=== PATIENT | female | born 2000 | race Caucasian/White ===

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

== ENCOUNTER 2020-02-21 19:49 | Emergency (ER) | payer BC, OTHER ==
--- NOTE | 2020-02-21 20:04 | EDM.PDOC ---
ED HPI GENERAL MEDICAL PROBLEM - General Chief Complaint: Skin Complaint Stated Complaint: rash Time Seen by Provider: 02/21/20 20:03 - History of Present Illness INITIAL COMMENTS - FREE TEXT/NARRATIVE: 19-year-old female presents the emergency room with a rash. The patient's been treated with Chlortrimazole and did a full course of this and full 4-week course of Diflucan without much improvement. This originally started about 3 months ago she is not sure what contact she may have had to get exposed to this. But is just not getting any better. She has had some itching in the areas but no other significant problems and she is concerned about the cosmetic effects of these well. Patient has not had any systemic symptoms no breathing difficulty shortness of breath no gastrointestinal problems no significant pain or discomfort she gets some itching at the lesions. - Related Data Allergies Allergy/AdvReac Type Severity Reaction Status Date / Time aspirin Allergy Rash Verified 09/06/17 18:33 Home Meds: Home Meds Control. 09/06/17 [History] Famotidine 20 mg PO Q12H #60 tablet 09/06/17 [Rx] Sucralfate [Carafate] 1 gm PO QIDACANDBED #30 tablet 09/06/17 [Rx] Terbinafine HCl [Terbinafine] 250 mg PO Q24H #30 tablet 02/21/20 [Rx] Past Medical History - Past Health History Medical/Surgical History: Denies Medical/Surgical History ED ROS GENERAL - Review of Systems Review Of Systems: See Below Constitutional: Reports: No Symptoms HEENT: Reports: No Symptoms Respiratory: Reports: No Symptoms Cardiovascular: Reports: No Symptoms Endocrine: Reports: No Symptoms GI/Abdominal: Reports: No Symptoms : Reports: No Symptoms Musculoskeletal: Reports: No Symptoms Skin: Reports: No Symptoms Neurological: Reports: No Symptoms ED EXAM, SKIN/RASH Exam: See Below Exam Limited By: No Limitations General Appearance: Alert, No Apparent Distress Head: Atraumatic, Normocephalic Neck: Normal Inspection, Supple, Non-Tender, Full Range of Motion Respiratory/Chest: No Respiratory Distress, Lungs Clear, Normal Breath Sounds Cardiovascular: Regular Rate, Rhythm, No Edema, No Murmur GI/Abdominal: Normal Bowel Sounds, Soft, Non-Tender (Female) Exam: Normal External Exam, Normal Speculum Exam, Normal Bimanual Exam Rectal (Female) Exam: Normal Exam, Normal Rectal Tone Back Exam: Normal Inspection, Full Range of Motion Extremities: Normal Inspection, Normal Range of Motion, Non-Tender Neurological: Alert, Oriented, Normal Cognition, Normal Gait Psychiatric: Normal Mood, Tearful Skin: Other (Multiple classic ringworm type lesions with clearing centers and scaly rings.) Course - Vital Signs Last Recorded V/S: Last Vital Signs Temp 36.4 C 02/21/20 19:57 Pulse 107 H 02/21/20 19:57 Resp 16 02/21/20 19:57 BP 149/85 H 02/21/20 19:57 Pulse Ox 100 02/21/20 19:57 - Re-Assessments/Exams Free Text/Narrative Re-Assessment/Exam: 02/21/20 20:35 Patient is failed clotrimazole and Diflucan. We will trial her on terbinafine 250 mg daily for 4 weeks in the meantime she should seek expert consultation with dermatology. 02/21/20 21:04 The treatment she has had thus far should have been fairly beneficial at least led to some improvement and has not which makes me wonder about the true etiology of this. I have strongly recommended with the patient that let start this new treatment however I want her to seek immediate dermatology evaluation it may take a month or so to get in to be seen by 1. Departure - Departure Time of Disposition: 20:42 Disposition: Home, Self-Care 01 Clinical Impression: Ringworm of body - Discharge Information Prescriptions: Terbinafine HCl [Terbinafine] 250 mg PO Q24H #30 tablet Instructions: Body Ringworm Referrals: PCP,None [Primary Care Provider] - Forms: ED Department Discharge Additional Instructions: Return to the emergency room with any questions problems or worsening symptoms. He was started on terbinafine 250 mg a day take 1 daily as directed for 4 weeks. In the meantime he may use 1% hydrocortisone cream over the lesions himself. It would also be beneficial for you to try and get in with a tassel making machine operator during this time. Sepsis Event Note - Evaluation Sepsis Screening Result: No Definite Risk - Focused Exam Vital Signs: Vital Signs Temp Pulse Resp BP Pulse Ox 02/21/20 19:57 36.4 C 107 H 16 149/85 H 100 Date Exam was Performed: 02/21/20 Time Exam was Performed: 20:54
== END 2020-02-21 21:04 | disposition home or self-care (01) ==
LOC: JD.ED 19:49
DX: B35.4 Tinea corporis (principal); Z88.6 Allergy status to analgesic agent; Z79.899 Other long term (current) drug therapy
CPT/HCPCS: 99282

== ENCOUNTER 2022-02-03 04:31 | Inpatient (IN) | payer OTHER ==
[~2022-02-03 04:31] MED LIST: Bupivacaine 0.25% 10 ML SDV ONE; Phenylephrine/Normal Saline 100 MCG/ML 10 ML Syringe ONE; ePHEDrine 50 MG/ML SDV ONE
[2022-02-03] MEDS ORDERED: Lidocaine 1% 50 ML MDV INJECT ONE (04:54)
[2022-02-03] MEDS ORDERED: Calcium Carbonate 500 MG Tab.Chew PO PRN (04:54)
[2022-02-03] MEDS ORDERED: Ondansetron 4 MG/2 ML SDV IVPUSH PRN (04:54)
[2022-02-03] MEDS ORDERED: Nalbuphine HCl 10 MG/ 1ML Amp IVPUSH PRN (04:54)
[2022-02-03] MEDS ORDERED: Sodium Chloride 0.9% 10 ML Syringe FLUSH PRN (04:54)
[2022-02-03] MEDS ORDERED: Oxytocin/Lactated Ringers 10 UNIT/1,000 ML BAG IV SCH (05:00)
[2022-02-03] MEDS: Lactated Ringers 1,000 ML IV SCH ×5 (05:35→11:14)
[2022-02-03] MEDS ORDERED: Bupivacaine/fentaNYL/NS 100 ML Bag EPIDUR PRN (05:59)
[2022-02-03] MEDS ORDERED: diphenhydrAMINE 50 MG/ML SDV IVPUSH PRN (05:59)
[2022-02-03] MEDS ORDERED: fentaNYL 100 MCG/2 ML SDV EPIDUR PRN (05:59)
[2022-02-03] MEDS ORDERED: ePHEDrine 50 MG/ML SDV IVPUSH PRN (05:59)
[2022-02-03] MEDS ORDERED: Sodium Chloride 0.9% 10 ML Syringe FLUSH SCH (09:00)
[2022-02-03] MEDS ORDERED: Misoprostol 200 MCG Tab ONE (12:49)
[2022-02-03] MEDS ORDERED: Acetaminophen 325 MG Tab PO PRN (13:26)
[2022-02-03] MEDS ORDERED: Docusate Sodium 100 MG Cap PO PRN (13:26)
[2022-02-03] MEDS ORDERED: Witch Hazel Medicated Pads 40/Jar TOP PRN (13:26)
[2022-02-03] MEDS ORDERED: Benzocaine/Menthol 20%-0.5% Spray 78 GM Cannister TOP PRN (13:26)
[2022-02-03] MEDS ORDERED: Misoprostol 200 MCG Tab PO ONE (13:30)
[2022-02-03] MEDS: Ibuprofen 600 MG Tab PO PRN (17:30)
[2022-02-03] MEDS ORDERED: Misoprostol 200 MCG Tab PO SCH (21:00)
[2022-02-04] MEDS: Ibuprofen 600 MG Tab PO PRN (00:39)
[2022-02-04] MEDS: FLUoxetine 20 MG Cap PO SCH ×2 (00:41→09:24)
== END 2022-02-04 15:30 | disposition home or self-care (01) | DRG 807 ==
LOC: JD.OBCHECK 04:31 → JD.OB 04:34 → JD.OBCHECK 04:53 → JD.OB 04:54 → OBSVTOIN 04:54 → JD.OB 13:13
PROVIDERS: ADMIT Obstetrics & Gynecology; ATTEND Obstetrics & Gynecology
PROC: 10E0XZZ Delivery of Products of Conception, External Approach (ICD-10-PCS; principal; 2022-02-03)
PROC: 0KQM0ZZ Repair Perineum Muscle, Open Approach (ICD-10-PCS; 2022-02-03)
PROC: 10907ZC Drainage of Amniotic Fluid, Therapeutic from Products of Conception, Via Natural or Artificial Opening (ICD-10-PCS; 2022-02-03)
PROC: 3E0R3BZ Introduction of Anesthetic Agent into Spinal Canal, Percutaneous Approach (ICD-10-PCS; 2022-02-03)
DX: O77.0 Labor and delivery complicated by meconium in amniotic fluid (principal); Z37.0 Single live birth; Z3A.38 38 weeks gestation of pregnancy; O69.81X0 Labor and delivery complicated by cord around neck, without compression, not applicable or unspecified; O70.1 Second degree perineal laceration during delivery; O99.344 Other mental disorders complicating childbirth; F41.9 Anxiety disorder, unspecified
CPT/HCPCS: 01967; 36415; 51702; 59025; 59409; 82565; 82570; 84156; 84450; 84460; 85025; 86592; A9270-GY; J2370; J2405; J2590; J3010; J3490; J7120

== ENCOUNTER 2023-04-19 18:29 | Emergency (ER) | payer OTHER ==
[2023-04-19] MEDS ORDERED: Ondansetron 4 MG/2 ML SDV IVPUSH ONE (19:08)
[2023-04-19] MEDS ORDERED: Sodium Chloride 0.9% 1,000 ML IV ONE (19:08)
[2023-04-19] MEDS ORDERED: HYDROmorphone 0.5 MG/0.5 ML Syringe IVPUSH ONE ×2 (19:08→21:36)
[2023-04-19 19:37] LABS: BASOPHILS ABSOLUTE AUTO 0.04 K/mm3 (0.01-0.08); BASOPHILS PERCENT AUTO 0.7 % (0.1-1.2); EOSINOPHILS ABSOLUTE AUTO 0.07 K/mm3 (0.04-0.36); EOSINOPHILS PERCENT AUTO 1.3 (0.7-5.8); HEMATOCRIT 39.3 % (34.1-44.9); HEMOGLOBIN 12.7 gm/dl (11.2-15.7); LYMPHOCYTES ABSOLUTE AUTO 1.46 K/mm3 (1.18-3.74); MEAN CORPUSCULAR HGB CONC 32.3 g/dl (32.2-35.5); MEAN CORPUSCULAR VOLUME 92.9 fl (79.4-94.8); MEAN PLATELET VOLUME 8.5 fl (9.4-12.3); MONOCYTES ABSOLUTE AUTO 0.71 K/mm3 (0.24-0.36); MONOCYTES PERCENT AUTO 13.1 % (4.7-12.5); NEUTROPHILS ABSOLUTE AUTO 3.13 K/mm3 (1.56-6.13); NEUTROPHILS PERCENT AUTO 57.9 % (34.0-71.1); PLATELET COUNT,PLT 223 K/mm3 (182-369); RED BLOOD CELL COUNT 4.23 M/mm3 (3.98-5.22); WHITE BLOOD CELL COUNT,WBC 5.41 K/mm3 (3.98-10.04)
[2023-04-19 20:01] LABS: A/G RATIO 0.9 (1-2); ALANINE AMINOTRANSFERASE,ALT 144 U/L (14-59); ALBUMIN 3.4 g/dl (3.4-5.0); ALKALINE PHOSPHATASE 99 U/L (46-116); ANION GAP 12.4 (5-15); ASPARTATE AMNIOTRANSFERASE,AST 55 U/L (15-37); BILIRUBIN TOTAL 0.8 mg/dL (0.2-1.0); BLOOD UREA NITROGEN,BUN 10 mg/dL (7-18); BUN/CREATININE RATIO 12.5 (14-18); C-REACTIVE PROTEIN <0.2 mg/dL (<1.0); CALCIUM 8.7 mg/dL (8.5-10.1); CARBON DIOXIDE,CO2 23 mEq/L (21-32); CHLORIDE,CL 102 mEq/L (98-107); CREATININE 0.8 mg/dL (0.55-1.02); EST CRCL DRUG DOSING (CG) 103.26 mL/min; ESTIMATED GFR 107 mL/min (>60); GLUCOSE RANDOM 91 mg/dL (70-99); MAGNESIUM 1.6 mg/dL (1.8-2.4); POTASSIUM,K 3.4 mEq/L (3.5-5.1); PROTEIN TOTAL,TP 7.4 g/dl (6.4-8.2); SODIUM,NA 134 mEq/L (136-145)
[2023-04-19 20:52] LABS: APPEARANCE,URINE CLEAR (Clear); BILIRUBIN,URINE 1+ (Negative); COLOR,URINE DARK YELLOW (Yellow); GLUCOSE,URINE NEGATIVE (Negative); KETONES,URINE 2+ (Negative); LEUKOCYTE ESTERASE,URINE TRACE (Negative); NITRITE,URINE NEGATIVE (Negative); OCCULT BLOOD,URINE NEGATIVE (Negative); PH,URINE 7.5 (5.0-8.0); PROTEIN,URINE 2+ (Negative)
[2023-04-19] MEDS ORDERED: Potassium Chloride 20 MEQ Tab.ER PO ONE (20:57)
[2023-04-19] MEDS ORDERED: Magnesium Oxide 400 MG Tab PO ONE (20:57)
[2023-04-19 21:09] LABS: BACTERIA,URINE MODERATE /hpf (FEW); MUCUS,URINE MANY /hpf (FEW); RBC,URINE 0-5 /hpf (0-5)
== END 2023-04-19 22:58 | disposition home or self-care (01) ==
LOC: JD.ED 18:29
DX: R11.2 Nausea with vomiting, unspecified (principal); R51.9 Headache, unspecified; E66.9 Obesity, unspecified; Z68.34 Body mass index [BMI] 34.0-34.9, adult; Z88.5 Allergy status to narcotic agent; Z86.16 Personal history of COVID-19; Z88.6 Allergy status to analgesic agent
CPT/HCPCS: 36415; 76705; 80053; 81001; 83735; 84703; 85025; 86140; 96361; 96374; 96375; 96376; 99284; A9270; J1170; J2405; J7030